=== PATIENT | male | born 1955 | race Caucasian/White ===

== ENCOUNTER 2017-09-21 12:29 | Emergency (ER) | payer BC ==
--- NOTE | 2017-09-21 12:48 | EDM.PDOC ---
ED HPI GENERAL MEDICAL PROBLEM - General Chief Complaint: Genitourinary Problem Stated Complaint: BLOOD IN URINE Time Seen by Provider: 09/21/17 12:44 Source of Information: Reports: Patient History Limitations: Reports: No Limitations - History of Present Illness INITIAL COMMENTS - FREE TEXT/NARRATIVE: History of present illness: []Patient had a femoral artery stent placed that subsequently occluded and was put on Coumadin. Last week patient noted a bruise on his abdomen and this morning started having blood in his urine. His surgeon, Dr. Salguero, requested he come to the ER to have his INR checked and would like to be called with results. Review of systems: As per history of present illness and below otherwise all systems reviewed and negative. Past medical history: As per history of present illness and as reviewed below otherwise noncontributory. Surgical history: As per history of present illness and as reviewed below otherwise noncontributory. Social history: No reported history of drug or alcohol abuse. Family history: As per history of present illness and as reviewed below otherwise noncontributory. Physical exam: General: Well developed, well nourished in NAD HEENT: Atraumatic, normocephalic, pupils reactive, negative for conjunctival pallor or scleral icterus, mucous membranes moist, throat clear, neck supple, nontender, trachea midline. Lungs: Clear to auscultation, breath sounds equal bilaterally, chest nontender. Heart: S1S2, regular, negative for clicks, rubs, or JVD. Abdomen: Soft, nondistended, nontender. There is a 3 cm x 1 cm purple ecchymotic area that is nontender to palpation over his right lower abdomen. Negative for masses or hepatosplenomegaly. Negative for costovertebral tenderness. Pelvis: Stable nontender. Genitourinary: Deferred. Rectal: Deferred. Extremities: Atraumatic, negative for cords or calf pain. Neurovascular unremarkable. Neuro: Awake, alert, oriented. Cranial nerves II through XII unremarkable. Cerebellum unremarkable. Motor and sensory unremarkable throughout. Exam nonfocal. Diagnostics: []INR, CBC and UA done, INR is 3.2, H&H is 8 and 51 UA has large blood 100 200 cells no UTI Therapeutics: [] Impression: []Hematuria secondary to Coumadin Plan: []I called Dr. Kan, the patient's surgeon and he would like him to 4 mg of Coumadin tomorrow instead of 6 and 6 mg on Saturday and follow up with a PT/INR on Saturday. Definitive disposition and diagnosis as appropriate pending reevaluation and review of above. 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 angioplasty - Infectious Disease History Infectious Disease History: Reports: Chicken Pox, Measles, Mumps - Past Surgical History GI Surgical History: Reports: Hernia, Inguinal Social & Family History - Family History Family Medical History: Noncontributory - Tobacco Use Smoking Status *Q: Former Smoker Used Tobacco, but Quit: Yes Month Tobacco Last Used: May - Caffeine Use Caffeine Use: Reports: None - Recreational Drug Use Recreational Drug Use: No ED ROS GENERAL - Review of Systems Review Of Systems: See Below (See history of present illness) ED EXAM, GENERAL - Physical Exam Exam: See Below (See history of present illness) Course - Vital Signs Last Recorded V/S: Last Vital Signs Temp 97.1 F 09/21/17 12:35 Pulse 90 09/21/17 12:35 Resp 18 09/21/17 12:35 BP 178/103 H 09/21/17 12:35 Pulse Ox 97 09/21/17 12:35 - Orders/Labs/Meds Labs: Laboratory Tests 09/21/17 09/21/17 09/21/17 Range/Units 12:46 12:55 12:55 WBC 9.96 (4.0-11.0) K/uL RBC 5.94 H (4.50-5.90) M/uL Hgb 18.1 H (13.0-17.0) g/dL Hct 51.6 H (38.0-50.0) % MCV 86.9 (80.0-98.0) fL MCH 30.5 (27.0-32.0) pg MCHC 35.1 (31.0-37.0) g/dL RDW Std Deviation 41.2 (28.0-62.0) fl RDW Coeff of Sanna 13 (11.0-15.0) % Plt Count 217 (150-400) K/uL MPV 10.20 (7.40-12.00) fL Neut % (Auto) 63.8 (48.0-80.0) % Lymph % (Auto) 21.3 (16.0-40.0) % [place] % (Auto) 12.8 (0.0-15.0) % Eos % (Auto) 1.9 (0.0-7.0) % Baso % (Auto) 0.2 (0.0-1.5) % Neut # (Auto) 6.4 H (1.4-5.7) K/uL Lymph # (Auto) 2.1 (0.6-2.4) K/uL [place] # (Auto) 1.3 H (0.0-0.8) K/uL Eos # (Auto) 0.2 (0.0-0.7) K/uL Baso # (Auto) 0.0 (0.0-0.1) K/uL Nucleated RBC % 0.0 /100WBC Nucleated RBCs # 0 K/uL INR 3.21 H (0.86-1.11) Urine Color DARK YELLOW Urine Appearance CLOUDY Urine pH 6.0 (5.0-8.0) Ur Specific [place] 1.020 (1.001-1.035) Urine Protein NEGATIVE (NEGATIVE) mg/dL Urine Glucose (UA) NEGATIVE (NEGATIVE) mg/dL Urine Ketones NEGATIVE (NEGATIVE) mg/dL Urine Occult Blood LARGE H (NEGATIVE) Urine Nitrite NEGATIVE (NEGATIVE) Urine Bilirubin NEGATIVE (NEGATIVE) Urine Urobilinogen 0.2 (<2.0) EU/dL Ur Leukocyte Esterase NEGATIVE (NEGATIVE) Urine RBC 150-200 (0-2/HPF) Urine WBC 2-4 (0-5/HPF) Ur Epithelial Cells RARE (NONE-FEW) Amorphous Sediment NOT SEEN (NEGATIVE) Urine Bacteria NOT SEEN (NEGATIVE) Urine Mucus NOT SEEN (NONE-MOD) Departure - Departure Time of Disposition: 13:44 Disposition: Home, Self-Care 01 Condition: Good Clinical Impression: Hematuria Qualifiers: Hematuria type: unspecified type Qualified Code(s): R31.9 - Hematuria, unspecified - Discharge Information Referrals: PCP,None [Primary Care Provider] - Forms: ED Department Discharge Additional Instructions: The following information is given to patients seen in the emergency department who are being discharged to home. This information is to outline your options for follow-up care. We provide all patients seen in our emergency department with a follow-up referral. The need for follow-up, as well as the timing and circumstances, are variable depending upon the specifics of your emergency department visit. If you don't have a primary care physician on staff, we will provide you with a referral. We always advise you to contact your personal physician following an emergency department visit to inform them of the circumstance of the visit and for follow-up with them and/or the need for any referrals to a consulting specialist. The emergency department will also refer you to a specialist when appropriate. This referral assures that you have the opportunity for follow-up care with a specialist. All of these measure are taken in an effort to provide you with optimal care, which includes your follow-up. Under all circumstances we always encourage you to contact your private physician who remains a resource for coordinating your care. When calling for follow-up care, please make the office aware that this follow-up is from your recent emergency room visit. If for any reason you are refused follow-up, please contact the [facility] Emergency Department at and asked to speak to the emergency department charge nurse. Adjust Coumadin dose to 4 mg on Saturday (tomorrow) Then take 6 mg on Saturday Have PT INR checked on Saturday before you take the next dose, results will dictate how much you take. Follow up with primary care
[2017-09-21 14:01] VITALS: BP 186/99
== END 2017-09-21 14:01 | disposition home or self-care (01) ==
LOC: MW.ED 12:29
DX: R31.9 Hematuria, unspecified (principal); T45.515A Adverse effect of anticoagulants, initial encounter; Z87.891 Personal history of nicotine dependence
CPT/HCPCS: 36415; 81001; 85025; 85610; 99283

== ENCOUNTER 2018-05-07 07:38 | Emergency (ER) | payer BC, OTHER ==
[2018-05-07 07:51] VITALS: BP 143/91
[2018-05-07] MEDS ORDERED: Sodium Chloride 0.9% 1,000 ML IV ONE (07:53)
[2018-05-07] MEDS ORDERED: Sodium Chloride 0.9% 2.5 ML Syringe FLUSH PRN (07:53)
[2018-05-07] MEDS ORDERED: Sodium Chloride 0.9% 10 ML Syringe FLUSH PRN (07:53)
[2018-05-07] MEDS ORDERED: Morphine 4 MG/ML Syringe IVPUSH ONE ×2 (07:56→09:20)
[2018-05-07] MEDS ORDERED: Ondansetron 4 MG/2 ML SDV IVPUSH ONE (07:56)
[2018-05-07] MEDS ORDERED: Morphine 2 MG/ML Syringe IVPUSH ONE (08:00)
[2018-05-07] MEDS ORDERED: Morphine 2 MG/ML Syringe IVPUSH PRN (08:36)
[2018-05-07 08:42] LABS: CHLORIDE,CL 104 mmol/L (98-107); SODIUM,NA 139 mmol/L (136-148)
[2018-05-07] MEDS ORDERED: Iopamidol 755 MG/ML 200 ML Multipack Bottle IVPUSH ONE (09:21)
--- NOTE | 2018-05-07 09:32 | CT ---
CT of the abdomen and pelvis with contrast. HISTORY: Right lower quadrant pain TECHNIQUE: Axial CT images were obtained of the abdomen and pelvis following administration of 100 mL of Isovue-370 in the left antecubital fossa without complication. Coronal and sagittal reconstructio ns obtained. FINDINGS: Mild atelectasis noted within the lung bases. The liver, spleen, and adrenal glands appear normal. The pancreas appears unremarkable. The gallbladd er is filled with multiple small gallstones. No bulky retroperitoneal lymphadenopathy or abdominal as cites. There is mild right perirenal stranding and moderate right-sided hydronephrosis and hydroureter. Ther e is a 3 mm obstructing stone at the right ureterovesicular junction. Nonobstructing 3 mm stone withi n the lower pole of the left kidney. The large and small bowel are normal in caliber without evidence of obstruction. No pericolonic infla mmation or stranding. Appendix is normal. No bulky pelvic lymphadenopathy or significant free pelvic fluid. No suspicious osseous abnormalities identified. Anterior bridging osteophytes noted at the SI joints. IMPRESSION: 1. There is a 3 mm obstructing stone at the right ureterovesicular junction with moderate proximal h ydronephrosis. 2. There is a 3 mm nonobstructing stone within the lower pole of the left kidney. 3. Numerous cholelithiasis without evidence of cholecystitis.
[2018-05-07] MEDS ORDERED: Tamsulosin 0.4 MG Cap.ER PO ONE (09:38)
[2018-05-07] MEDS ORDERED: Ketorolac 30 MG/ML SDV IVPUSH ONE (09:40)
--- NOTE | 2018-05-07 10:02 | EDM.PDOC ---
ED HPI GENERAL MEDICAL PROBLEM - General Chief Complaint: Abdominal Pain Stated Complaint: STOMACH PAINS Time Seen by Provider: 05/07/18 07:52 Source of Information: Reports: Patient History Limitations: Reports: No Limitations - History of Present Illness INITIAL COMMENTS - FREE TEXT/NARRATIVE: History of present illness: []Patient awoke at 4 AM with severe right lower quadrant pain. Sharp and nonradiating. He fevers, chills or diarrhea but is nauseated and had one episode of vomiting. He denies any blood in his urine, back or testicular pain. She does have his appendix. Review of systems: As per history of present illness and below otherwise all systems reviewed and negative. Past medical history: As per history of present illness and as reviewed below otherwise noncontributory. Surgical history: As per history of present illness and as reviewed below otherwise noncontributory. Social history: No reported history of drug or alcohol abuse. Family history: As per history of present illness and as reviewed below otherwise noncontributory. Physical exam: General: Well developed, well nourished in NAD HEENT: Atraumatic, normocephalic, pupils reactive, negative for conjunctival pallor or scleral icterus, mucous membranes moist, throat clear, neck supple, nontender, trachea midline. Lungs: Clear to auscultation, breath sounds equal bilaterally, chest nontender. Heart: S1S2, regular, negative for clicks, rubs, or JVD. Abdomen: Soft, nondistended, right lower quadrant without rebound or guarding.. Negative for masses or hepatosplenomegaly. Negative for costovertebral tenderness. Pelvis: Stable nontender. Genitourinary: Deferred. Rectal: Deferred. Extremities: Atraumatic, negative for cords or calf pain. Neurovascular unremarkable. Neuro: Awake, alert, oriented. Cranial nerves II through XII unremarkable. Cerebellum unremarkable. Motor and sensory unremarkable throughout. Exam nonfocal. Diagnostics: []CBC is elevated with left shift, chemistries are negative urine has 1-2 RBCs, CT scan done with contrast shows 3 mm right UPJ stone that is obstructing with mild hydronephrosis Therapeutics: []Patient was given IV hydration, morphine, Toradol, Flomax with resolution of his pain. Impression: []Right ureterolithiasis Plan: []Flomax, tramadol, increase fluids follow-up with urology return if symptoms worsen or change. Definitive disposition and diagnosis as appropriate pending reevaluation and review of above. Right Lower Abdominal Pain Score (Numeric/FACES): 10 - Related Data Allergies Allergy/AdvReac Type Severity Reaction Status Date / Time No Known Allergies Allergy Verified 05/07/18 07:51 Home Meds: Home Meds Warfarin [Coumadin] 6 mg PO DAILY 09/21/17 [History] Aspirin 325 mg PO DAILY 05/07/18 [History] Diltiazem HCl [Cardizem Cd] 120 mg PO DAILY 05/07/18 [History] Pioglitazone [Actos] 15 mg PO DAILY 05/07/18 [History] Pravastatin Sodium [Pravachol] 40 mg PO DAILY 05/07/18 [History] Tamsulosin HCl [Flomax] 0.4 mg PO DAILY #14 cap.er.24h 05/07/18 [Rx] Varenicline Tartrate [Chantix] 2 mg PO DAILY 05/07/18 [History] traMADol HCl [Tramadol HCl] 50 mg PO Q6H PRN #16 tablet 05/07/18 [Rx] Past Medical History - Past Health History Medical/Surgical History: Denies Medical/Surgical History Cardiovascular History: Reports: Afib, High Cholesterol, Other (See Below) Other Cardiovascular History: Left femoral artery bypass and stent placement. angioplasty. cardiac ablation - Infectious Disease History Infectious Disease History: Reports: Chicken Pox - Past Surgical History GI Surgical History: Reports: Hernia, Inguinal Social & Family History - Family History Family Medical History: Noncontributory - Tobacco Use Smoking Status *Q: Former Smoker Used Tobacco, but Quit: Yes Month/Year Tobacco Last Used: unk - Caffeine Use Caffeine Use: Reports: None - Recreational Drug Use Recreational Drug Use: No ED ROS GENERAL - Review of Systems Review Of Systems: ROS reveals no pertinent complaints other than HPI. ED EXAM, GI/ABD - Physical Exam Exam: See Below (The history of present illness) Course - Vital Signs Last Recorded V/S: Last Vital Signs Temp 96.4 F 05/07/18 07:48 Pulse 83 05/07/18 07:48 Resp 20 05/07/18 07:48 BP 143/91 H 05/07/18 07:48 Pulse Ox 97 05/07/18 07:48 - Orders/Labs/Meds Orders: Active Orders 24 hr Category Date Time Status UA W/MICROSCOPIC [URIN] Stat Lab 05/07/18 08:50 Ordered Saline Lock Insert [OM.PC] Stat Oth 05/07/18 07:52 Ordered Labs: Laboratory Tests 05/07/18 05/07/18 05/07/18 Range/Units 08:00 08:00 08:50 WBC 15.13 H (4.0-11.0) K/uL RBC 5.72 (4.50-5.90) M/uL Hgb 17.2 H (13.0-17.0) g/dL Hct 49.4 (38.0-50.0) % MCV 86.4 (80.0-98.0) fL MCH 30.1 (27.0-32.0) pg MCHC 34.8 (31.0-37.0) g/dL RDW Std Deviation 44.4 (28.0-62.0) fl RDW Coeff of Sanna 14 (11.0-15.0) % Plt Count 209 (150-400) K/uL MPV 10.10 (7.40-12.00) fL Neut % (Auto) 81.2 H (48.0-80.0) % Lymph % (Auto) 9.5 L (16.0-40.0) % [place] % (Auto) 9.1 (0.0-15.0) % Eos % (Auto) 0.1 (0.0-7.0) % Baso % (Auto) 0.1 (0.0-1.5) % Neut # (Auto) 12.3 H (1.4-5.7) K/uL Lymph # (Auto) 1.4 (0.6-2.4) K/uL [place] # (Auto) 1.4 H (0.0-0.8) K/uL Eos # (Auto) 0.0 (0.0-0.7) K/uL Baso # (Auto) 0.0 (0.0-0.1) K/uL Nucleated RBC % 0.0 /100WBC Nucleated RBCs # 0 K/uL Sodium 139 (136-148) mmol/L Potassium 3.8 (3.5-5.1) mmol/L Chloride 104 (98-107) mmol/L Carbon Dioxide 25.8 (21.0-32.0) mmol/L BUN 14 (7.0-18.0) mg/dL Creatinine 1.1 (0.8-1.3) mg/dL Est Cr Clr Drug Dosing 71.89 mL/min Estimated GFR (MDRD) > 60.0 ml/min Glucose 121 H (74-106) mg/dL Calcium 9.0 (8.5-10.1) mg/dL Total Bilirubin 0.6 (0.2-1.0) mg/dL AST 37 (15-37) IU/L ALT 37 (14-63) IU/L Alkaline Phosphatase 89 (46-116) U/L Total Protein 7.7 (6.4-8.2) g/dL Albumin 3.9 (3.4-5.0) g/dL Globulin 3.8 H (2.0-3.5) g/dL Albumin/Globulin Ratio 1.0 L (1.3-2.8) Lipase 152 (73-393) U/L Urine Color YELLOW Urine Appearance CLEAR Urine pH 6.0 (5.0-8.0) Ur Specific [place] 1.025 (1.001-1.035) Urine Protein NEGATIVE (NEGATIVE) mg/dL Urine Glucose (UA) NEGATIVE (NEGATIVE) mg/dL Urine Ketones 15 H (NEGATIVE) mg/dL Urine Occult Blood MODERATE (NEGATIVE) Urine Nitrite NEGATIVE (NEGATIVE) Urine Bilirubin NEGATIVE (NEGATIVE) Urine Urobilinogen 0.2 (<2.0) EU/dL Ur Leukocyte Esterase NEGATIVE (NEGATIVE) Urine RBC 1-2 (0-2/HPF) Urine WBC 0-1 (0-5/HPF) Ur Epithelial Cells RARE (NONE-FEW) Urine Bacteria RARE (NEGATIVE) Meds: Medications Discontinued Medications Generic Name Dose Route Start Last Admin Trade Name Freq PRN Reason Stop Dose Admin Sodium Chloride 1,000 mls @ 999 mls/hr 05/07/18 07:53 05/07/18 08:06 Normal Saline IV 05/07/18 08:53 999 mls/hr .Bolus ONE Administration Iopamidol 100 ml 05/07/18 09:21 05/07/18 09:22 Isovue Multipack-370 (76%) IVPUSH 05/07/18 09:22 100 ml ONETIME ONE Administration Ketorolac Tromethamine 30 mg 05/07/18 09:40 05/07/18 09:48 Toradol IVPUSH 05/07/18 09:41 30 mg ONETIME ONE Administration Morphine Sulfate 4 mg 05/07/18 07:56 05/07/18 09:38 Morphine IVPUSH 05/07/18 07:57 Not Given ONETIME ONE Morphine Sulfate 4 mg 05/07/18 08:00 05/07/18 08:06 Morphine IVPUSH 05/07/18 08:01 4 mg ONETIME ONE Administration Morphine Sulfate 4 mg 05/07/18 08:36 05/07/18 09:25 Morphine IVPUSH 4 mg Q1H PRN Administration Abdominal Pain Morphine Sulfate 4 mg 05/07/18 09:20 05/07/18 10:24 Morphine IVPUSH 05/07/18 09:21 Not Given ONETIME ONE Ondansetron HCl 4 mg 05/07/18 07:56 05/07/18 08:05 Zofran IVPUSH 05/07/18 07:57 4 mg ONETIME ONE Administration Sodium Chloride 10 ml 05/07/18 07:53 05/07/18 08:06 Saline Flush FLUSH 10 ml ASDIRECTED PRN Administration Keep Vein Open Sodium Chloride 2.5 ml 05/07/18 07:53 05/07/18 08:06 Saline Flush FLUSH 2.5 ml ASDIRECTED PRN Administration Keep Vein Open Tamsulosin HCl 0.4 mg 05/07/18 09:38 05/07/18 09:49 Flomax PO 05/07/18 09:39 0.4 mg ONETIME ONE Administration Departure - Departure Time of Disposition: 10:30 Disposition: Home, Self-Care 01 Condition: Good Clinical Impression: Ureterolithiasis - Discharge Information Prescriptions: Tamsulosin HCl [Flomax] 0.4 mg PO DAILY #14 cap.er.24h traMADol HCl [Tramadol HCl] 50 mg PO Q6H PRN #16 tablet PRN Reason: Pain Instructions: Kidney Stones, [id number] Referrals: PCP,None [Primary Care Provider] - Payam Lainez MD [Physician] - (Next available) Forms: ED Department Discharge Additional Instructions: The following information is given to patients seen in the emergency department who are being discharged to home. This information is to outline your options for follow-up care. We provide all patients seen in our emergency department with a follow-up referral. The need for follow-up, as well as the timing and circumstances, are variable depending upon the specifics of your emergency department visit. If you don't have a primary care physician on staff, we will provide you with a referral. We always advise you to contact your personal physician following an emergency department visit to inform them of the circumstance of the visit and for follow-up with them and/or the need for any referrals to a consulting specialist. The emergency department will also refer you to a specialist when appropriate. This referral assures that you have the opportunity for follow-up care with a specialist. All of these measure are taken in an effort to provide you with optimal care, which includes your follow-up. Under all circumstances we always encourage you to contact your private physician who remains a resource for coordinating your care. When calling for follow-up care, please make the office aware that this follow-up is from your recent emergency room visit. If for any reason you are refused follow-up, please contact the [facility] Emergency Department at and asked to speak to the emergency department charge nurse. Flomax, tramadol, ibuprofen for pain increase fluids follow-up with urology return if symptoms worsen or change. [facility] - Urology [address] [place] [id number] - My Orders Last 24 Hours: My Active Orders 05/07/18 07:52 Saline Lock Insert [OM.PC] Stat 05/07/18 08:50 UA W/MICROSCOPIC [URIN] Stat - Assessment/Plan Last 24 Hours: My Active Orders 05/07/18 07:52 Saline Lock Insert [OM.PC] Stat 05/07/18 08:50 UA W/MICROSCOPIC [URIN] Stat
== END 2018-05-07 10:30 | disposition home or self-care (01) ==
LOC: MW.ED 07:38
DX: N13.2 Hydronephrosis with renal and ureteral calculous obstruction (principal); I48.91 Unspecified atrial fibrillation; E78.00 Pure hypercholesterolemia, unspecified; Z79.01 Long term (current) use of anticoagulants; Z79.82 Long term (current) use of aspirin; Z79.899 Other long term (current) drug therapy; Z87.891 Personal history of nicotine dependence
CPT/HCPCS: 36415; 74177; 80053; 81001; 83690; 85025; 96361; 96374; 96375; 96376; 99284; A9270; J1885; J2270; J2405; J7040; Q9967